=== PATIENT | male | born 1975 | race Caucasian/White ===

== ENCOUNTER 2020-12-18 04:10 | Emergency (ER) | payer OTHER, SELFPAY ==
[2020-12-18] VITALS (16 sets, daily range): BP systolic 115–150; BP diastolic 65–83; PULSE 83–106; RESP 14–19; TEMP 36.4–36.8; O2SAT 91–97; BMI 29.7
--- NOTE | 2020-12-18 04:31 | DI.RAD.S_ITS ---
PROCEDURE: XR CHEST 1V INDICATIONS: Short of breath TECHNIQUE: One view of the chest was acquired. COMPARISON: None. FINDINGS: Surgical changes and devices: None. Lungs and pleura: Patchy opacities noted in the lungs bilaterally. No pleural effusions or pneumothorax. Mediastinum: Mediastinal contours appear normal. Heart size is normal. Bones and chest wall: No suspicious bony lesions. Overlying soft tissues appear unremarkable. IMPRESSION: N patchy bibasilar airspace opacities which could represent atelectasis versus pneumonia. Dictated by: Leydi Stack MD, PhD on 12/18/2020 at 9:28 Approved by: Leydi Stack MD, PhD on 12/18/2020 at 9:29
--- NOTE | 2020-12-18 04:32 | ED.AMS ---
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 Patient has history of alcohol induced hepatic failure. Followed by [facility] for this condition. Within the last month had esophageal banding. Tonight he admits drinking alcohol as well as taking someone else's Dilaudid 2 mg by mouth. Partner states he has been making nonsensical statements in the past couple days. Patient is somnolent but awakes. Has pinpoint pupils. Protecting his airway. Patient is jaundice and icterus. Answering questions appropriately. Has had occasional chest pain and dyspnea recently. No blood in mouth on exam partner states he has been taking his lactulose as well as PPI medication MD complaint: altered mental status Related Data Allergies Allergy/AdvReac Type Severity Reaction Status Date / Time No Known Drug Allergies Allergy Verified 12/18/20 05:31 Review of Systems <Tony Burgos MD - Last Filed: 01/04/21 07:07> Review of Systems Narrative: GENERAL: Denies chills, fatigue, malaise, fever, sweats. HEENT: Denies sinus pain, ear pain, sore throat RESPIRATORY: Complains dyspnea, cough CARDIOVASCULAR: Denies chest pain, palpitations GASTROINTESTINAL: Denies nausea, vomiting, abdominal pain : Denies dysuria, frequency, hematuria MUSCULOSKELETAL: denies muscle or bony pain SKIN: Denies rash, skin lesions NEUROLOGIC: Denies weakness, numbness ROS Unobtainable: All systems reviewed & are unremarkable except as noted in HPI and below Patient History <Tony Burgos MD - Last Filed: 01/04/21 07:07> Social History Smoking Status: Current every day smoker Smoking Status: Current every day smoker alcohol intake frequency: 3 or more drinks per day Alcohol type: hard liquor Substance Use Type: does not use Exam <Tony Burgos MD - Last Filed: 01/04/21 07:07> Narrative Exam Narrative: GENERAL: in no distress, not toxic not dyspneic, somnolent but awakes easily. HEAD: Normocephalic. EYES: Pupils equal round bilateral scleral icterus. No injection no discharge, small but symmetric pupils, reactive to light. ENT: Mucous membranes moist. NECK: Trachea midline. CARDIOVASCULAR: Regular rate and rhythm without murmurs RESPIRATORY: Clear to auscultation. Breath sounds equal bilaterally. No wheezes, rales, or rhonchi. Speaks full sentences GASTROINTESTINAL: Abdomen soft, non-tender EXTREMITIES: No gross deformities. BACK: No flank tenderness. NEURO: AOx4. SKIN: Warm and dry, patient is jaundiced PSYCH: Not anxious, is cooperative Initial Vital Signs Initial Vital Signs: Vital Signs Temperature 97.7 F 12/18/20 04:26 Pulse Rate 96 H 12/18/20 04:26 Respiratory Rate 14 12/18/20 04:26 Blood Pressure 133/71 12/18/20 04:26 Pulse Oximetry 96 12/18/20 04:26 <Destinee Peres DO - Last Filed: 12/18/20 11:25> Initial Vital Signs Initial Vital Signs: Vital Signs Temperature 97.7 F 12/18/20 04:26 Pulse Rate 96 H 12/18/20 04:26 Respiratory Rate 14 12/18/20 04:26 Blood Pressure 133/71 12/18/20 04:26 Pulse Oximetry 96 12/18/20 04:26 Course <Tony Burgos MD - Last Filed: 01/04/21 07:07> Course Course Narrative: No new issues during course of stay. There are no beds available at the [facility] Time 7:00 a.m.. s/o dr peres, awaiting to hear back from and Aron [place] Orders Ordered: Discontinued Medications Ceftriaxone Sodium/Dextrose (Rocephin) 1 gm in 50 mls @ 100 mls/hr IV NOW ONE Stop: 12/18/20 05:54 Last Infusion: 12/18/20 06:41 Dose: 0 mls/hr Documented by: Admin: 12/18/20 05:57 Dose: 100 mls/hr Documented by: CATHY Azithromycin 500 mg/ Dextrose 250 mls @ 250 mls/hr IV NOW ONE Stop: 12/18/20 05:26 Last Infusion: 12/18/20 08:37 Dose: 0 mls/hr Documented by: Admin: 12/18/20 06:40 Dose: 250 mls/hr Documented by: CATHY Sodium Chloride (Normal Saline 0.9%) 1,000 mls @ 1,000 mls/hr IV BOLUS ONE Stop: 12/18/20 07:12 Last Infusion: 12/18/20 09:06 Dose: 0 mls/hr Documented by: Admin: 12/18/20 06:56 Dose: 1,000 mls/hr Documented by: MICHELL Reevaluation(s) Reevaluation #1: Informed 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 However will be challenging to find a bed for all of his needs, beds are full in [place] Time: 05:30 Consultations Consultation #1: Spoke with [facility] morning babysitter dr bowers, agrees patient does need higher level care however they do not have any beds. Time: 06:32 Vital Signs Vital signs: Vital Signs - 8 hr 12/18/20 04:26 12/18/20 06:01 12/18/20 06:30 Temperature 97.7 F Pulse Rate 96 H 88 100 H Respiratory Rate 14 18 Blood Pressure 133/71 150/83 H Pulse Oximetry 96 96 97 12/18/20 07:00 12/18/20 07:30 12/18/20 07:36 Temperature 97.7 F Pulse Rate 92 H 89 106 H Respiratory Rate 18 Blood Pressure 132/76 Pulse Oximetry 97 94 12/18/20 07:37 12/18/20 07:55 12/18/20 07:57 Temperature 97.6 F Pulse Rate 101 H 101 H 91 H Respiratory Rate 19 Blood Pressure 132/76 115/68 115/68 Pulse Oximetry 97 12/18/20 08:00 12/18/20 08:23 12/18/20 08:30 Temperature Pulse Rate 83 Respiratory Rate Blood Pressure 119/65 124/65 Pulse Oximetry 95 91 12/18/20 08:31 12/18/20 09:00 12/18/20 10:11 Temperature 98.3 F Pulse Rate 102 H 91 H 91 H Respiratory Rate 15 Blood Pressure 124/69 133/71 Pulse Oximetry 94 93 12/18/20 10:26 Temperature 97.9 F Pulse Rate 86 Respiratory Rate 14 Blood Pressure 132/75 Pulse Oximetry <Destinee Peres DO - Last Filed: 12/18/20 11:25> Orders Ordered: Discontinued Medications Ceftriaxone Sodium/Dextrose (Rocephin) 1 gm in 50 mls @ 100 mls/hr IV NOW ONE Stop: 12/18/20 05:54 Last Infusion: 12/18/20 06:41 Dose: 0 mls/hr Documented by: Admin: 12/18/20 05:57 Dose: 100 mls/hr Documented by: CATHY Azithromycin 500 mg/ Dextrose 250 mls @ 250 mls/hr IV NOW ONE Stop: 12/18/20 05:26 Last Infusion: 12/18/20 08:37 Dose: 0 mls/hr Documented by: Admin: 12/18/20 06:40 Dose: 250 mls/hr Documented by: CATHY Sodium Chloride (Normal Saline 0.9%) 1,000 mls @ 1,000 mls/hr IV BOLUS ONE Stop: 12/18/20 07:12 Last Infusion: 12/18/20 09:06 Dose: 0 mls/hr Documented by: Admin: 12/18/20 06:56 Dose: 1,000 mls/hr Documented by: MICHELL Vital Signs Vital signs: Vital Signs - 8 hr 12/18/20 04:26 12/18/20 06:01 12/18/20 06:30 Temperature 97.7 F Pulse Rate 96 H 88 100 H Respiratory Rate 14 18 Blood Pressure 133/71 150/83 H Pulse Oximetry 96 96 97 12/18/20 07:00 12/18/20 07:30 12/18/20 07:36 Temperature 97.7 F Pulse Rate 92 H 89 106 H Respiratory Rate 18 Blood Pressure 132/76 Pulse Oximetry 97 94 12/18/20 07:37 12/18/20 07:55 12/18/20 07:57 Temperature 97.6 F Pulse Rate 101 H 101 H 91 H Respiratory Rate 19 Blood Pressure 132/76 115/68 115/68 Pulse Oximetry 97 12/18/20 08:00 12/18/20 08:23 12/18/20 08:30 Temperature Pulse Rate 83 Respiratory Rate Blood Pressure 119/65 124/65 Pulse Oximetry 95 91 12/18/20 08:31 12/18/20 09:00 12/18/20 10:11 Temperature 98.3 F Pulse Rate 102 H 91 H 91 H Respiratory Rate 15 Blood Pressure 124/69 133/71 Pulse Oximetry 94 93 12/18/20 10:26 Temperature 97.9 F Pulse Rate 86 Respiratory Rate 14 Blood Pressure 132/75 Pulse Oximetry MDM - Altered Mental Status <Tony Burgos MD - Last Filed: 01/04/21 07:07> Differential Diagnosis Differential diagnosis: Likely alcoholic intoxication, altered mental status and sepsis (Anemia/hepatic encephalopathy/community-acquired pneumonia) Lab Data Attestation: I reviewed the patient's lab results. Result diagrams: 12/18/20 04:25 12/18/20 04:25 Labs: Lab Results 12/18/20 12/18/20 12/18/20 Range/Units 04:25 04:25 04:25 WBC 7.4 (4.5-11.0) X10^3/uL RBC 2.43 L (4.5-5.9) X10^6/uL Hgb 6.8 L* (13.5-17.5) g/dL Hct 22.2 L (41-53) % MCV 91.4 (80-100) fL MCH 28.1 (26-34) PG MCHC 30.7 (30-36) % RDW 19.6 H (11.6-14.8) % Plt Count 79 L (150-400) X10^3/uL Neut % (Auto) 55.2 (50-75) % Lymph % (Auto) 26.4 (25-40) % [place] % (Auto) 10.8 (3-14) % Eos % (Auto) 5.9 H (2-4) % Baso % (Auto) 1.7 (0-2) % Neut # (Auto) 4100 (1109-1210) /uL Lymph # (Auto) 2000 (8708-7342) /uL [place] # (Auto) 800 (0-900) /uL Eos # (Auto) 400 (0-450) /uL Baso # (Auto) 100 (0-100) /uL Platelet Estimate Decreased on smear RBC Morphology See below Polychromasia 1+ H Anisocytosis 2+ H PT 23.6 H (10.1-12.7) SECONDS INR 2.1 H (0.9-1.3) APTT 43 H (26.4-36.2) SECONDS Sodium (137-145) mmol/L Potassium (3.4-5.1) mmol/L Chloride (98-107) mmol/L Carbon Dioxide (22-32) mmol/L BUN (9-20) mg/dL Creatinine (0.66-1.25) mg/dL Estimated GFR (>60) mL/min BUN/Creatinine Ratio (6-22) Glucose (70-100) mg/dL Lactate (0.7-2.1) mmol/L Calcium (8.4-10.2) mg/dL Total Bilirubin (0.2-1.3) mg/dL AST (17-59) IU/L ALT (<50) IU/L Alkaline Phosphatase (38-126) U/L Ammonia 96 H (9-30) umol/L Total Creatine Kinase (55-170) U/L CK-MB (CK-2) (<2.37) ng/mL CK-MB (CK-2) Rel Index (1.5-5.0) % Troponin I (0.01-0.034) ng/mL Total Protein (6.3-8.2) g/dL Albumin (3.5-5.0) g/dL Globulin (1.7-4.1) g/dL Albumin/Globulin Ratio (1.0-2.8) Lipase (23-300) U/L Procalcitonin (<0.5) ng/mL Ethyl Alcohol ( - 10) mg/dL SARS-CoV-2 (PCR) (Negative) Blood Type Antibody Screen Crossmatch 12/18/20 12/18/20 12/18/20 Range/Units 04:25 04:25 04:25 WBC (4.5-11.0) X10^3/uL RBC (4.5-5.9) X10^6/uL Hgb (13.5-17.5) g/dL Hct (41-53) % MCV (80-100) fL MCH (26-34) PG MCHC (30-36) % RDW (11.6-14.8) % Plt Count (150-400) X10^3/uL Neut % (Auto) (50-75) % Lymph % (Auto) (25-40) % [place] % (Auto) (3-14) % Eos % (Auto) (2-4) % Baso % (Auto) (0-2) % Neut # (Auto) (8555-2833) /uL Lymph # (Auto) (5087-6594) /uL [place] # (Auto) (0-900) /uL Eos # (Auto) (0-450) /uL Baso # (Auto) (0-100) /uL Platelet Estimate RBC Morphology Polychromasia Anisocytosis PT (10.1-12.7) SECONDS INR (0.9-1.3) APTT (26.4-36.2) SECONDS Sodium 143 (137-145) mmol/L Potassium 4.7 (3.4-5.1) mmol/L Chloride 110 H (98-107) mmol/L Carbon Dioxide 17 L (22-32) mmol/L BUN 9 (9-20) mg/dL Creatinine 0.94 (0.66-1.25) mg/dL Estimated GFR > 60.0 (>60) mL/min BUN/Creatinine Ratio 9.6 (6-22) Glucose 105 H (70-100) mg/dL Lactate (0.7-2.1) mmol/L Calcium 6.5 L (8.4-10.2) mg/dL Total Bilirubin 10.0 H (0.2-1.3) mg/dL AST 80 H (17-59) IU/L ALT 21 (<50) IU/L Alkaline Phosphatase 164 H (38-126) U/L Ammonia (9-30) umol/L Total Creatine Kinase 286 H (55-170) U/L CK-MB (CK-2) 4.88 H (<2.37) ng/mL CK-MB (CK-2) Rel Index 1.7 (1.5-5.0) % Troponin I 0.067 H (0.01-0.034) ng/mL Total Protein 7.6 (6.3-8.2) g/dL Albumin 3.1 L (3.5-5.0) g/dL Globulin 4.5 H (1.7-4.1) g/dL Albumin/Globulin Ratio 0.7 L (1.0-2.8) Lipase 276 (23-300) U/L Procalcitonin < 0.05 (<0.5) ng/mL Ethyl Alcohol 223 H ( - 10) mg/dL SARS-CoV-2 (PCR) (Negative) Blood Type Antibody Screen Crossmatch 12/18/20 12/18/20 12/18/20 Range/Units 04:25 04:45 06:10 WBC (4.5-11.0) X10^3/uL RBC (4.5-5.9) X10^6/uL Hgb (13.5-17.5) g/dL Hct (41-53) % MCV (80-100) fL MCH (26-34) PG MCHC (30-36) % RDW (11.6-14.8) % Plt Count (150-400) X10^3/uL Neut % (Auto) (50-75) % Lymph % (Auto) (25-40) % [place] % (Auto) (3-14) % Eos % (Auto) (2-4) % Baso % (Auto) (0-2) % Neut # (Auto) (4076-5152) /uL Lymph # (Auto) (7841-1919) /uL [place] # (Auto) (0-900) /uL Eos # (Auto) (0-450) /uL Baso # (Auto) (0-100) /uL Platelet Estimate RBC Morphology Polychromasia Anisocytosis PT (10.1-12.7) SECONDS INR (0.9-1.3) APTT (26.4-36.2) SECONDS Sodium (137-145) mmol/L Potassium (3.4-5.1) mmol/L Chloride (98-107) mmol/L Carbon Dioxide (22-32) mmol/L BUN (9-20) mg/dL Creatinine (0.66-1.25) mg/dL Estimated GFR (>60) mL/min BUN/Creatinine Ratio (6-22) Glucose (70-100) mg/dL Lactate 10.2 H* (0.7-2.1) mmol/L Calcium (8.4-10.2) mg/dL Total Bilirubin (0.2-1.3) mg/dL AST (17-59) IU/L ALT (<50) IU/L Alkaline Phosphatase (38-126) U/L Ammonia (9-30) umol/L Total Creatine Kinase (55-170) U/L CK-MB (CK-2) (<2.37) ng/mL CK-MB (CK-2) Rel Index (1.5-5.0) % Troponin I (0.01-0.034) ng/mL Total Protein (6.3-8.2) g/dL Albumin (3.5-5.0) g/dL Globulin (1.7-4.1) g/dL Albumin/Globulin Ratio (1.0-2.8) Lipase (23-300) U/L Procalcitonin (<0.5) ng/mL Ethyl Alcohol ( - 10) mg/dL SARS-CoV-2 (PCR) Negative (Negative) Blood Type A Positive Antibody Screen Negative Crossmatch See Detail 12/18/20 Range/Units 08:03 WBC (4.5-11.0) X10^3/uL RBC (4.5-5.9) X10^6/uL Hgb (13.5-17.5) g/dL Hct (41-53) % MCV (80-100) fL MCH (26-34) PG MCHC (30-36) % RDW (11.6-14.8) % Plt Count (150-400) X10^3/uL Neut % (Auto) (50-75) % Lymph % (Auto) (25-40) % [place] % (Auto) (3-14) % Eos % (Auto) (2-4) % Baso % (Auto) (0-2) % Neut # (Auto) (5680-4668) /uL Lymph # (Auto) (0566-2016) /uL [place] # (Auto) (0-900) /uL Eos # (Auto) (0-450) /uL Baso # (Auto) (0-100) /uL Platelet Estimate RBC Morphology Polychromasia Anisocytosis PT (10.1-12.7) SECONDS INR (0.9-1.3) APTT (26.4-36.2) SECONDS Sodium (137-145) mmol/L Potassium (3.4-5.1) mmol/L Chloride (98-107) mmol/L Carbon Dioxide (22-32) mmol/L BUN (9-20) mg/dL Creatinine (0.66-1.25) mg/dL Estimated GFR (>60) mL/min BUN/Creatinine Ratio (6-22) Glucose (70-100) mg/dL Lactate 6.5 H* (0.7-2.1) mmol/L Calcium (8.4-10.2) mg/dL Total Bilirubin (0.2-1.3) mg/dL AST (17-59) IU/L ALT (<50) IU/L Alkaline Phosphatase (38-126) U/L Ammonia (9-30) umol/L Total Creatine Kinase (55-170) U/L CK-MB (CK-2) (<2.37) ng/mL CK-MB (CK-2) Rel Index (1.5-5.0) % Troponin I (0.01-0.034) ng/mL Total Protein (6.3-8.2) g/dL Albumin (3.5-5.0) g/dL Globulin (1.7-4.1) g/dL Albumin/Globulin Ratio (1.0-2.8) Lipase (23-300) U/L Procalcitonin (<0.5) ng/mL Ethyl Alcohol ( - 10) mg/dL SARS-CoV-2 (PCR) (Negative) Blood Type Antibody Screen Crossmatch Imaging Data Chest x-ray: Radiologist's Impression: Bilateral lower lobe pulmonary infiltrates ECG Data Attestation: I personally reviewed and interpreted this ECG as follows: Interpretation: Normal sinus rhythm, ventricular rate 95, no ST elevation <Destinee Peres, DO - Last Filed: 12/18/20 11:25> Lab Data Attestation: I reviewed the patient's lab results. Labs: Lab Results 12/18/20 12/18/20 12/18/20 Range/Units 04:25 04:25 04:25 WBC 7.4 (4.5-11.0) X10^3/uL RBC 2.43 L (4.5-5.9) X10^6/uL Hgb 6.8 L* (13.5-17.5) g/dL Hct 22.2 L (41-53) % MCV 91.4 (80-100) fL MCH 28.1 (26-34) PG MCHC 30.7 (30-36) % RDW 19.6 H (11.6-14.8) % Plt Count 79 L (150-400) X10^3/uL Neut % (Auto) 55.2 (50-75) % Lymph % (Auto) 26.4 (25-40) % [place] % (Auto) 10.8 (3-14) % Eos % (Auto) 5.9 H (2-4) % Baso % (Auto) 1.7 (0-2) % Neut # (Auto) 4100 (4617-2714) /uL Lymph # (Auto) 2000 (9824-6100) /uL [place] # (Auto) 800 (0-900) /uL Eos # (Auto) 400 (0-450) /uL Baso # (Auto) 100 (0-100) /uL Platelet Estimate Decreased on smear RBC Morphology See below Polychromasia 1+ H Anisocytosis 2+ H PT 23.6 H (10.1-12.7) SECONDS INR 2.1 H (0.9-1.3) APTT 43 H (26.4-36.2) SECONDS Sodium (137-145) mmol/L Potassium (3.4-5.1) mmol/L Chloride (98-107) mmol/L Carbon Dioxide (22-32) mmol/L BUN (9-20) mg/dL Creatinine (0.66-1.25) mg/dL Estimated GFR (>60) mL/min BUN/Creatinine Ratio (6-22) Glucose (70-100) mg/dL Lactate (0.7-2.1) mmol/L Calcium (8.4-10.2) mg/dL Total Bilirubin (0.2-1.3) mg/dL AST (17-59) IU/L ALT (<50) IU/L Alkaline Phosphatase (38-126) U/L Ammonia 96 H (9-30) umol/L Total Creatine Kinase (55-170) U/L CK-MB (CK-2) (<2.37) ng/mL CK-MB (CK-2) Rel Index (1.5-5.0) % Troponin I (0.01-0.034) ng/mL Total Protein (6.3-8.2) g/dL Albumin (3.5-5.0) g/dL Globulin (1.7-4.1) g/dL Albumin/Globulin Ratio (1.0-2.8) Lipase (23-300) U/L Procalcitonin (<0.5) ng/mL Ethyl Alcohol ( - 10) mg/dL SARS-CoV-2 (PCR) (Negative) Blood Type Antibody Screen Crossmatch 12/18/20 12/18/20 12/18/20 Range/Units 04:25 04:25 04:25 WBC (4.5-11.0) X10^3/uL RBC (4.5-5.9) X10^6/uL Hgb (13.5-17.5) g/dL Hct (41-53) % MCV (80-100) fL MCH (26-34) PG MCHC (30-36) % RDW (11.6-14.8) % Plt Count (150-400) X10^3/uL Neut % (Auto) (50-75) % Lymph % (Auto) (25-40) % [place] % (Auto) (3-14) % Eos % (Auto) (2-4) % Baso % (Auto) (0-2) % Neut # (Auto) (1748-9353) /uL Lymph # (Auto) (5150-1849) /uL [place] # (Auto) (0-900) /uL Eos # (Auto) (0-450) /uL Baso # (Auto) (0-100) /uL Platelet Estimate RBC Morphology Polychromasia Anisocytosis PT (10.1-12.7) SECONDS INR (0.9-1.3) APTT (26.4-36.2) SECONDS Sodium 143 (137-145) mmol/L Potassium 4.7 (3.4-5.1) mmol/L Chloride 110 H (98-107) mmol/L Carbon Dioxide 17 L (22-32) mmol/L BUN 9 (9-20) mg/dL Creatinine 0.94 (0.66-1.25) mg/dL Estimated GFR > 60.0 (>60) mL/min BUN/Creatinine Ratio 9.6 (6-22) Glucose 105 H (70-100) mg/dL Lactate (0.7-2.1) mmol/L Calcium 6.5 L (8.4-10.2) mg/dL Total Bilirubin 10.0 H (0.2-1.3) mg/dL AST 80 H (17-59) IU/L ALT 21 (<50) IU/L Alkaline Phosphatase 164 H (38-126) U/L Ammonia (9-30) umol/L Total Creatine Kinase 286 H (55-170) U/L CK-MB (CK-2) 4.88 H (<2.37) ng/mL CK-MB (CK-2) Rel Index 1.7 (1.5-5.0) % Troponin I 0.067 H (0.01-0.034) ng/mL Total Protein 7.6 (6.3-8.2) g/dL Albumin 3.1 L (3.5-5.0) g/dL Globulin 4.5 H (1.7-4.1) g/dL Albumin/Globulin Ratio 0.7 L (1.0-2.8) Lipase 276 (23-300) U/L Procalcitonin < 0.05 (<0.5) ng/mL Ethyl Alcohol 223 H ( - 10) mg/dL SARS-CoV-2 (PCR) (Negative) Blood Type Antibody Screen Crossmatch 12/18/20 12/18/20 12/18/20 Range/Units 04:25 04:45 06:10 WBC (4.5-11.0) X10^3/uL RBC (4.5-5.9) X10^6/uL Hgb (13.5-17.5) g/dL Hct (41-53) % MCV (80-100) fL MCH (26-34) PG MCHC (30-36) % RDW (11.6-14.8) % Plt Count (150-400) X10^3/uL Neut % (Auto) (50-75) % Lymph % (Auto) (25-40) % [place] % (Auto) (3-14) % Eos % (Auto) (2-4) % Baso % (Auto) (0-2) % Neut # (Auto) (8138-1785) /uL Lymph # (Auto) (7938-6762) /uL [place] # (Auto) (0-900) /uL Eos # (Auto) (0-450) /uL Baso # (Auto) (0-100) /uL Platelet Estimate RBC Morphology Polychromasia Anisocytosis PT (10.1-12.7) SECONDS INR (0.9-1.3) APTT (26.4-36.2) SECONDS Sodium (137-145) mmol/L Potassium (3.4-5.1) mmol/L Chloride (98-107) mmol/L Carbon Dioxide (22-32) mmol/L BUN (9-20) mg/dL Creatinine (0.66-1.25) mg/dL Estimated GFR (>60) mL/min BUN/Creatinine Ratio (6-22) Glucose (70-100) mg/dL Lactate 10.2 H* (0.7-2.1) mmol/L Calcium (8.4-10.2) mg/dL Total Bilirubin (0.2-1.3) mg/dL AST (17-59) IU/L ALT (<50) IU/L Alkaline Phosphatase (38-126) U/L Ammonia (9-30) umol/L Total Creatine Kinase (55-170) U/L CK-MB (CK-2) (<2.37) ng/mL CK-MB (CK-2) Rel Index (1.5-5.0) % Troponin I (0.01-0.034) ng/mL Total Protein (6.3-8.2) g/dL Albumin (3.5-5.0) g/dL Globulin (1.7-4.1) g/dL Albumin/Globulin Ratio (1.0-2.8) Lipase (23-300) U/L Procalcitonin (<0.5) ng/mL Ethyl Alcohol ( - 10) mg/dL SARS-CoV-2 (PCR) Negative (Negative) Blood Type A Positive Antibody Screen Negative Crossmatch See Detail 12/18/20 Range/Units 08:03 WBC (4.5-11.0) X10^3/uL RBC (4.5-5.9) X10^6/uL Hgb (13.5-17.5) g/dL Hct (41-53) % MCV (80-100) fL MCH (26-34) PG MCHC (30-36) % RDW (11.6-14.8) % Plt Count (150-400) X10^3/uL Neut % (Auto) (50-75) % Lymph % (Auto) (25-40) % [place] % (Auto) (3-14) % Eos % (Auto) (2-4) % Baso % (Auto) (0-2) % Neut # (Auto) (1053-6853) /uL Lymph # (Auto) (6824-2130) /uL [place] # (Auto) (0-900) /uL Eos # (Auto) (0-450) /uL Baso # (Auto) (0-100) /uL Platelet Estimate RBC Morphology Polychromasia Anisocytosis PT (10.1-12.7) SECONDS INR (0.9-1.3) APTT (26.4-36.2) SECONDS Sodium (137-145) mmol/L Potassium (3.4-5.1) mmol/L Chloride (98-107) mmol/L Carbon Dioxide (22-32) mmol/L BUN (9-20) mg/dL Creatinine (0.66-1.25) mg/dL Estimated GFR (>60) mL/min BUN/Creatinine Ratio (6-22) Glucose (70-100) mg/dL Lactate 6.5 H* (0.7-2.1) mmol/L Calcium (8.4-10.2) mg/dL Total Bilirubin (0.2-1.3) mg/dL AST (17-59) IU/L ALT (<50) IU/L Alkaline Phosphatase (38-126) U/L Ammonia (9-30) umol/L Total Creatine Kinase (55-170) U/L CK-MB (CK-2) (<2.37) ng/mL CK-MB (CK-2) Rel Index (1.5-5.0) % Troponin I (0.01-0.034) ng/mL Total Protein (6.3-8.2) g/dL Albumin (3.5-5.0) g/dL Globulin (1.7-4.1) g/dL Albumin/Globulin Ratio (1.0-2.8) Lipase (23-300) U/L Procalcitonin (<0.5) ng/mL Ethyl Alcohol ( - 10) mg/dL SARS-CoV-2 (PCR) (Negative) Blood Type Antibody Screen Crossmatch MDM Narrative Medical decision making narrative: I received sign-out from Dr. Burgos seen and evaluated patient myself. Patient sleeping. Easily arousable alert and appropriate overall appears better than his numbers. He states that for the last week he has had increasing shortness of breath with exertion. He denies any dizziness or lightheadedness. He takes lactulose and has large bowel movements he is unsure that it is dark or bloody. He has not had any nausea or vomiting. He is found to be quite anemic with significantly elevated lactic acid along with indeterminate troponin. He is overall hemodynamically stable anemia is likely contributing to shortness of breath and in troponin release as well. He is given 2 units of packed red blood cells for anemia. Liver enzymes and bilirubin also elevated unclear what his baseline is. He has been treated with Rocephin and azithromycin for pneumonia, chest x-ray does show bilateral lower lobe infiltrates. He denies any productive cough or fever. Lactic acid is improving but still significantly elevated. Patient appears well and not septic, lactic acid may be due to liver failure and not clearing it. 8:20am Dr. Griggs, morning babysitter have Maria De Jesus tejada updated patient's symptoms test results agrees with transfer 8:30am Dr. Celaya hospitalist updated patient's symptoms test results repeat lactate and accepts for transfer <Destinee Peres, DO - Last Filed: 12/18/20 11:25> Critical Care Time Critical Care Time: Yes Total Critical Care Time: 30 Attestation: The high probability of a clinically significant, sudden or life threatening deterioration of the [cardiovascular] system(s) required my full and direct attention, intervention and personal management. The aggregate critical care time was 30 minutes. This time is in addition to time spent performing reported procedures but includes the following: [x] Data Review and interpretation [x] Patient assessment and monitoring of vital signs [x] Documentation [x] Medication orders and management Discharge Plan Departure Patient Disposition: [facility] Clinical Impression: Acute hepatic encephalopathy, Anemia, Alcohol intoxication
[2020-12-18 04:46] LABS: Ammonia (NH3) 96 umol/L (9-30)
[2020-12-18 04:47] LABS: Ethanol (ETOH) 223 mg/dL
[2020-12-18 04:49] LABS: Alanine Aminotransferase 21 IU/L (<50); Albumin 3.1 g/dL (3.5-5.0); Albumin Globulin Ratio 0.7 (1.0-2.8); Alkaline Phosphatase 164 U/L (38-126); Aspartate Aminotransferase 80 IU/L (17-59); BUN Creatinine Ratio 9.6 (6-22); Blood Urea Nitrogen 9 mg/dL (9-20); Calcium 6.5 mg/dL (8.4-10.2); Carbon Dioxide 17 mmol/L (22-32); Chloride 110 mmol/L (98-107); Creatine Kinase 286 U/L (55-170); Estimated Glomerular Filt Rate > 60.0 mL/min (>60); Globulin 4.5 g/dL (1.7-4.1); Glucose 105 mg/dL (70-100); HEMOLYSIS < 15 (0-50); Lipase 276 U/L (23-300); Potassium 4.7 mmol/L (3.4-5.1); Sodium 143 mmol/L (137-145); Total Protein 7.6 g/dL (6.3-8.2)
[2020-12-18 04:52] LABS: Basophils Absolute Auto 100 /uL (0-100); Basophils Percent Auto 1.7 % (0-2); Eosinophils Absolute Auto 400 /uL (0-450); Eosinophils Percent Auto 5.9 % (2-4); Hematocrit 22.2 % (41-53); Lymphocytes Absolute Auto 2000 /uL (1100-4500); Lymphocytes Percent Auto 26.4 % (25-40); Mean Corpuscular HGB Conc 30.7 % (30-36); Mean Corpuscular Hemoglobin 28.1 PG (26-34); Mean Corpuscular Volume 91.4 fL (80-100); Monocytes Absolute Auto 800 /uL (0-900); Monocytes Percent Auto 10.8 % (3-14); Neutrophils Absolute Auto 4100 /uL (1500-7000); Neutrophils Percent Auto 55.2 % (50-75); Red Blood Cell Count 2.43 X10^6/uL (4.5-5.9); Red Cell Distribution Width 19.6 % (11.6-14.8); White Blood Cell Count 7.4 X10^3/uL (4.5-11.0)
[2020-12-18 04:59] LABS: Hemoglobin 6.8 g/dL (13.5-17.5)
[2020-12-18 05:00] LABS: Add Manual Diff / Slide Review SLIDE REVIEW; Troponin I 0.067 ng/mL (0.01-0.034)
[2020-12-18 05:04] LABS: CKMB % Relative Index 1.7 % (1.5-5.0); Creatine Kinase MB 4.88 ng/mL (<2.37); INR 2.1 (0.9-1.3); Prothrombin Time 23.6 SECONDS (10.1-12.7)
[2020-12-18 05:07] LABS: PTT Partial Thromboplastin Tim 43 SECONDS (26.4-36.2)
[2020-12-18 05:11] LABS: COVID19 -Nasal RAPID Negative (Negative)
[2020-12-18] MEDS: CEFTRIAXONE 1 GM/50 ML FROZ.PIGGY IV (05:57)
[2020-12-18 06:08] LABS: Lactate (Lactic Acid) 10.2 mmol/L (0.7-2.1)
[2020-12-18 06:21] LABS: Procalcitonin < 0.05 ng/mL (<0.5)
[2020-12-18 06:33] LABS: Platelet Count 79 X10^3/uL (150-400)
[2020-12-18 06:39] LABS: Anisocytosis 2+; Platelet Estimate Decreased on smear; Polychromasia 1+
[2020-12-18] MEDS: AZITHROMYCIN 500 MG in DEXTROSE 5% IN WATER 250 ML IV (06:40)
[2020-12-18] MEDS: SODIUM CHLORIDE 0.9% 1,000 ML 1000 ML IV (06:56)
[2020-12-18 07:56] LABS: Reflexed Lactate in 2 Hours Y
[2020-12-18 08:28] LABS: Lactate 2HR (Lactic Acid Rflx) 6.5 mmol/L (0.7-2.1)
--- NOTE | 2020-12-18 10:30 | PC.NURSE ---
blood infusing with transport team
== END 2020-12-18 10:32 | disposition short-term general hospital (02) ==
PROVIDERS: Emergency Medicine; Emergency Provider Emergency Medicine
DX: K72.00 Acute and subacute hepatic failure without coma (principal); D64.9 Anemia, unspecified; F10.129 Alcohol abuse with intoxication, unspecified; Y90.7 Blood alcohol level of 200-239 mg/100 ml; R06.00 Dyspnea, unspecified; R07.9 Chest pain, unspecified; Z20.822 Contact with and (suspected) exposure to COVID-19
CPT/HCPCS: 36415; 36430; 71045; 80053; 80320; 82140; 82550; 82553; 83605; 83690; 84145; 84484; 85025; 85610; 85730; 86850; 86900; 86901; 87040; 87635; 93005; 96365; 96366; 96367; 99282; 99291; C9803; P9016

== ENCOUNTER 2021-07-06 22:08 | Emergency (ER) | payer MEDICARE, MEDICAID, SELFPAY ==
[2021-07-06 22:14] VITALS: BP 146/66; PULSE 117; RESP 24; TEMP 37.9; O2SAT 98; BMI 36.6
[2021-07-06 22:34] VITALS: BP 130/70; PULSE 108; RESP 25; O2SAT 99
--- NOTE | 2021-07-06 22:34 | DI.RAD.S_ITS ---
PROCEDURE: XR CHEST 1V INDICATIONS: suspected sepsis TECHNIQUE: One view of the chest was acquired. COMPARISON: [facility], CR, XR CHEST 1V, 12/18/2020, 4:36. FINDINGS: Surgical changes and devices: None. Lungs and pleura: Lungs are clear. No pleural effusions or pneumothorax. Mediastinum: Mediastinal contours appear normal. Heart size is normal. Bones and chest wall: No suspicious bony lesions. Overlying soft tissues appear unremarkable. IMPRESSION: No acute cardiopulmonary disease process. Dictated by: Leydi Stack MD, PhD on 07/07/2021 at 8:33 Approved by: Leydi Stack MD, PhD on 07/07/2021 at 8:33
--- NOTE | 2021-07-06 22:47 | DI.CT.S_ITS ---
PROCEDURE: CT ABDOMEN PELVIS W CON INDICATIONS: left sided abdominal pain TECHNIQUE: After the administration of intravenous contrast, axial sections acquired from the lung bases to the pubic symphysis. Coronal and sagittal reformats were performed. For radiation dose reduction, the following was used: automated exposure control, adjustment of mA and/or kV according to patient size. COMPARISON: None. FINDINGS: Image quality: Excellent. Lung bases: Unremarkable. Heart: No significant findings. ABDOMEN: Liver: Hepatic contour is nodular, indicating cirrhosis. Gallbladder: Unremarkable. Biliary ducts: Unremarkable. Pancreas: Unremarkable. Spleen: Unremarkable. Adrenal Glands: Unremarkable. Kidneys and Ureters: Unremarkable. Stomach and Bowel: There is moderate thickening of the distal esophagus. 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 Stomach, small bowel loops, and colon are unremarkable. Peritoneum: No abnormal intraperitoneal fluid. Large amount of ascites. Ventral Wall: There is a fat and fluid containing anterior abdominal wall hernia measuring 70 mm transverse. Abdominal Nodes: No retroperitoneal or mesenteric adenopathy by size criteria. Vessels: Aorta and inferior vena cava are normal in size. PELVIS: Pelvic Organs: Unremarkable. Bladder: Unremarkable. Pelvic Nodes: No enlarged lymph nodes. Miscellaneous: No hernias are seen. Bones: Unremarkable. IMPRESSION: 1. Cirrhosis and portal hypertension. 2. Ascites. 3. Periesophageal varices. 4. Distal esophageal thickening. This could be further assessed with endoscopy, if clinically indicated. 5. Concordant with preliminary interpretation. Dictated by: Haley Durham M.D. on 07/07/2021 at 8:18 Approved by: Haley Durham M.D. on 07/07/2021 at 8:20
[2021-07-06 22:49] LABS: Basophils Absolute Auto 100 /uL (0-100); Basophils Percent Auto 1.3 % (0-2); Eosinophils Absolute Auto 100 /uL (0-450); Eosinophils Percent Auto 0.7 % (2-4); Hemoglobin 7.9 g/dL (13.5-17.5); Lymphocytes Absolute Auto 1500 /uL (1100-4500); Lymphocytes Percent Auto 14.9 % (25-40); Mean Corpuscular HGB Conc 33.1 % (30-36); Mean Corpuscular Hemoglobin 35.7 PG (26-34); Monocytes Absolute Auto 1500 /uL (0-900); Monocytes Percent Auto 14.8 % (3-14); Neutrophils Absolute Auto 7100 /uL (1500-7000); Neutrophils Percent Auto 68.3 % (50-75); Platelet Count 134 X10^3/uL (150-400); Red Blood Cell Count 2.22 X10^6/uL (4.5-5.9); Red Cell Distribution Width 20.2 % (11.6-14.8); White Blood Cell Count 10.3 X10^3/uL (4.5-11.0)
--- NOTE | 2021-07-06 22:49 | ED.ABDPAIN ---
HPI - Abdominal Pain <Tony Burgos MD - Last Filed: 07/09/21 07:13> General Chief Complaint: Abdominal Pain Stated Complaint: STAGE 4 RENAL FAILURE STOMACH PAINS SWELLING Time Seen by Provider: 07/06/21 22:34 Source: patient Mode of arrival: Wheelchair Limitations: no limitations History of Present Illness HPI narrative: Patient complains of left lower abdominal pain for the past day. Fever started today. No nausea and vomiting. Patient has been compliant with his home medications for liver failure. [facility]. Is not on liver transplant. 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 No longer drinks alcohol. No altered mental status no confusion. Patient is awake alert oriented x4. No hallucinations. Abdominal distension is not new. Patient and state abdominal distension is baseline for him. It waxes and wanes Related Data Previous Rx's Medication Instructions Recorded cephalexin 500 mg capsule 500 mg PO BID 5 Days #10 cap 07/07/21 Allergies Allergy/AdvReac Type Severity Reaction Status Date / Time No Known Drug Allergies Allergy Verified 12/18/20 05:31 Review of Systems <Tony Burgos MD - Last Filed: 07/09/21 07:13> Review of Systems Narrative: GENERAL: Complaint chills, fatigue, malaise, fever, denies sweats. HEENT: Denies sinus pain, ear pain, sore throat RESPIRATORY: Denies dyspnea, cough CARDIOVASCULAR: Denies chest pain, palpitations GASTROINTESTINAL: Denies nausea, vomiting, complains abdominal pain : Denies dysuria, frequency, hematuria MUSCULOSKELETAL: denies muscle or bony pain SKIN: Denies rash, skin lesions NEUROLOGIC: Denies weakness, numbness ROS Unobtainable: All systems reviewed & are unremarkable except as noted in HPI and below Patient History <Tony Burgos MD - Last Filed: 07/09/21 07:13> Social History Smoking Status: Current every day smoker Smoking Status: Current every day smoker alcohol intake frequency: 0-2 drinks per day Alcohol type: hard liquor Substance Use Type: does not use Exam <Tony Burgos MD - Last Filed: 07/09/21 07:13> Narrative Exam Narrative: GENERAL: in no distress, not toxic not dyspneic HEAD: Normocephalic. EYES: Pupils equal round bilateral scleral icterus. No injection no discharge ENT: Mucous membranes moist. NECK: Trachea midline. CARDIOVASCULAR: Regular rate and rhythm without murmurs RESPIRATORY: Clear to auscultation. Breath sounds equal bilaterally. No wheezes, rales, or rhonchi. GASTROINTESTINAL: Abdomen soft, mild left lower quadrant tenderness no peritoneal signs, has chronic baseline abdominal distension/ascites EXTREMITIES: No gross deformities. BACK: No flank tenderness. NEURO: AOx4. SKIN: Warm and dry PSYCH: Not anxious, is cooperative Initial Vital Signs Initial Vital Signs: Vital Signs Temperature 100.2 F H 07/06/21 22:14 Pulse Rate 117 H 07/06/21 22:14 Respiratory Rate 24 07/06/21 22:14 Blood Pressure 146/66 H 07/06/21 22:14 Pulse Oximetry 98 07/06/21 22:14 <Brant Higginbotham DO - Last Filed: 07/07/21 08:55> Initial Vital Signs Initial Vital Signs: Vital Signs Temperature 100.2 F H 07/06/21 22:14 Pulse Rate 117 H 07/06/21 22:14 Respiratory Rate 24 07/06/21 22:14 Blood Pressure 146/66 H 07/06/21 22:14 Pulse Oximetry 98 07/06/21 22:14 Course <Tony Burgos MD - Last Filed: 07/09/21 07:13> Course Course Narrative: No new issues during course of stay 7:[address] a[address] out to Dr. Higginbotham, awaiting call back from [facility] for placement likely around 9:00 a.m.. Trying for [facility] or [facility] or possibly [facility] Orders Ordered: Discontinued Medications Cephalexin HCl (Cephalexin 250 Mg Capsule) 500 mg PO NOW ONE Stop: 07/07/21 07:59 Last Admin: 07/07/21 08:12 Dose: 500 mg Documented by: BTONER Hydromorphone HCl (Hydromorphone 1 Mg Inj) 1 mg IV NOW ONE Stop: 07/06/21 22:48 Last Admin: 07/06/21 22:59 Dose: 1 mg Documented by: KGALLAG Hydromorphone HCl (Hydromorphone 1 Mg Inj) 1 mg IV NOW ONE Stop: 07/07/21 00:47 Last Admin: 07/07/21 00:55 Dose: 1 mg Documented by: MELITA Hydromorphone HCl (Hydromorphone 0.5 Mg Inj) 0.5 mg IV NOW ONE Stop: 07/07/21 07:59 Last Admin: 07/07/21 08:11 Dose: 0.5 mg Documented by: GALLITO Sodium Chloride (Normal Saline 0.9%) 1,000 mls @ 1,000 mls/hr IV BOLUS ONE Stop: 07/06/21 23:33 Last Infusion: 07/07/21 00:27 Dose: 0 mls/hr Documented by: Admin: 07/06/21 23:00 Dose: 1,000 mls/hr Documented by: MELITA Sodium Chloride (Normal Saline 0.9%) 500 mls @ 1,000 mls/hr IV BOLUS ONE Stop: 07/06/21 23:17 Last Admin: 07/06/21 23:30 Dose: Not Given Documented by: MELITA Ceftriaxone Sodium 1,000 mg/ (Sodium Chloride) 100 mls @ 200 mls/hr IV NOW ONE Stop: 07/07/21 01:47 Last Infusion: 07/07/21 02:35 Dose: 0 mls/hr Documented by: Admin: 07/07/21 01:51 Dose: 200 mls/hr Documented by: MELITA Ibuprofen (Ibuprofen 400 Mg Tablet) 400 mg PO NOW ONE Stop: 07/06/21 22:49 Last Admin: 07/06/21 23:00 Dose: 400 mg Documented by: MELITA Ondansetron HCl (Ondansetron 4 Mg/2 Ml Inj) 4 mg IV NOW ONE Stop: 07/06/21 22:48 Last Admin: 07/06/21 22:59 Dose: 4 mg Documented by: MELITA Reevaluation(s) Reevaluation #1: Reviewed results with patient and . Patient states laboratory studies for liver essentially at baseline. Always has elevated bilirubin. Patient understand bed availability very limited at this time. We are waiting for hospital that has GI capability/services Time: 01:44 Reevaluation #2: Patient has been resting comfortably. No new issues. Awaiting for bed placement Time: 06:53 Vital Signs Vital signs: Vital Signs - 8 hr 07/07/21 01:30 07/07/21 01:34 07/07/21 01:35 Temperature 97.8 F Pulse Rate 102 H 102 H Respiratory Rate 22 19 Blood Pressure 110/56 L Pulse Oximetry 92 94 07/07/21 02:00 07/07/21 02:30 07/07/21 03:00 Temperature Pulse Rate 104 H 104 H 109 H Respiratory Rate 22 19 21 Blood Pressure 123/59 L 115/61 130/63 Pulse Oximetry 92 93 93 07/07/21 03:26 07/07/21 03:30 07/07/21 04:00 Temperature Pulse Rate 108 H 105 H 93 H Respiratory Rate 20 22 14 Blood Pressure 124/89 120/81 121/57 L Pulse Oximetry 99 99 93 07/07/21 04:30 07/07/21 05:00 07/07/21 05:30 Temperature Pulse Rate 89 93 H 92 H Respiratory Rate 12 13 15 Blood Pressure 125/60 105/51 L 104/51 L Pulse Oximetry 93 93 95 07/07/21 06:00 07/07/21 06:30 07/07/21 07:00 Temperature Pulse Rate 91 H 92 H 95 H Respiratory Rate 12 12 16 Blood Pressure 103/51 L 106/55 L 107/53 L Pulse Oximetry 94 92 95 07/07/21 07:30 07/07/21 07:46 07/07/21 08:00 Temperature 98.6 F Pulse Rate 88 93 H Respiratory Rate 12 17 Blood Pressure 93/48 L 111/52 L Pulse Oximetry 95 97 07/07/21 08:30 Temperature Pulse Rate 91 H Respiratory Rate 18 Blood Pressure 120/59 L Pulse Oximetry 94 <Brant Higginbotham, - Last Filed: 07/07/21 08:55> Orders Ordered: Discontinued Medications Cephalexin HCl (Cephalexin 250 Mg Capsule) 500 mg PO NOW ONE Stop: 07/07/21 07:59 Last Admin: 07/07/21 08:12 Dose: 500 mg Documented by: BTONER Hydromorphone HCl (Hydromorphone 1 Mg Inj) 1 mg IV NOW ONE Stop: 07/06/21 22:48 Last Admin: 07/06/21 22:59 Dose: 1 mg Documented by: KGALLAG Hydromorphone HCl (Hydromorphone 1 Mg Inj) 1 mg IV NOW ONE Stop: 07/07/21 00:47 Last Admin: 07/07/21 00:55 Dose: 1 mg Documented by: MELITA Hydromorphone HCl (Hydromorphone 0.5 Mg Inj) 0.5 mg IV NOW ONE Stop: 07/07/21 07:59 Last Admin: 07/07/21 08:11 Dose: 0.5 mg Documented by: GALLITO Sodium Chloride (Normal Saline 0.9%) 1,000 mls @ 1,000 mls/hr IV BOLUS ONE Stop: 07/06/21 23:33 Last Infusion: 07/07/21 00:27 Dose: 0 mls/hr Documented by: Admin: 07/06/21 23:00 Dose: 1,000 mls/hr Documented by: MELITA Sodium Chloride (Normal Saline 0.9%) 500 mls @ 1,000 mls/hr IV BOLUS ONE Stop: 07/06/21 23:17 Last Admin: 07/06/21 23:30 Dose: Not Given Documented by: MELITA Ceftriaxone Sodium 1,000 mg/ (Sodium Chloride) 100 mls @ 200 mls/hr IV NOW ONE Stop: 07/07/21 01:47 Last Infusion: 07/07/21 02:35 Dose: 0 mls/hr Documented by: Admin: 07/07/21 01:51 Dose: 200 mls/hr Documented by: MELITA Ibuprofen (Ibuprofen 400 Mg Tablet) 400 mg PO NOW ONE Stop: 07/06/21 22:49 Last Admin: 07/06/21 23:00 Dose: 400 mg Documented by: MELITA Ondansetron HCl (Ondansetron 4 Mg/2 Ml Inj) 4 mg IV NOW ONE Stop: 07/06/21 22:48 Last Admin: 07/06/21 22:59 Dose: 4 mg Documented by: MELITA Vital Signs Vital signs: Vital Signs - 8 hr 07/07/21 01:30 07/07/21 01:34 07/07/21 01:35 Temperature 97.8 F Pulse Rate 102 H 102 H Respiratory Rate 22 19 Blood Pressure 110/56 L Pulse Oximetry 92 94 07/07/21 02:00 07/07/21 02:30 07/07/21 03:00 Temperature Pulse Rate 104 H 104 H 109 H Respiratory Rate 22 19 21 Blood Pressure 123/59 L 115/61 130/63 Pulse Oximetry 92 93 93 07/07/21 03:26 07/07/21 03:30 07/07/21 04:00 Temperature Pulse Rate 108 H 105 H 93 H Respiratory Rate 20 22 14 Blood Pressure 124/89 120/81 121/57 L Pulse Oximetry 99 99 93 07/07/21 04:30 07/07/21 05:00 07/07/21 05:30 Temperature Pulse Rate 89 93 H 92 H Respiratory Rate 12 13 15 Blood Pressure 125/60 105/51 L 104/51 L Pulse Oximetry 93 93 95 07/07/21 06:00 07/07/21 06:30 07/07/21 07:00 Temperature Pulse Rate 91 H 92 H 95 H Respiratory Rate 12 12 16 Blood Pressure 103/51 L 106/55 L 107/53 L Pulse Oximetry 94 92 95 07/07/21 07:30 07/07/21 07:46 07/07/21 08:00 Temperature 98.6 F Pulse Rate 88 93 H Respiratory Rate 12 17 Blood Pressure 93/48 L 111/52 L Pulse Oximetry 95 97 07/07/21 08:30 Temperature Pulse Rate 91 H Respiratory Rate 18 Blood Pressure 120/59 L Pulse Oximetry 94 MDM - Abdominal Pain <Tony Burgos MD - Last Filed: 07/09/21 07:13> Differential Diagnosis Differential diagnosis: Likely abdominal pain, acute appendicitis, diverticulitis, pancreatitis, small bowel obstruction and other (UTI) Lab Data Result diagrams: 07/06/21 22:33 07/06/21 22:33 Labs: Lab Results 07/06/21 07/06/21 07/06/21 Range/Units 22:33 22:33 22:33 WBC 10.3 (4.5-11.0) X10^3/uL RBC 2.22 L (4.5-5.9) X10^6/uL Hgb 7.9 L (13.5-17.5) g/dL Hct 24.0 L (41-53) % MCV 108.0 H (80-100) fL MCH 35.7 H (26-34) PG MCHC 33.1 (30-36) % RDW 20.2 H (11.6-14.8) % Plt Count 134 L (150-400) X10^3/uL Neut % (Auto) 68.3 (50-75) % Lymph % (Auto) 14.9 L (25-40) % [place] % (Auto) 14.8 H (3-14) % Eos % (Auto) 0.7 L (2-4) % Baso % (Auto) 1.3 (0-2) % Neut # (Auto) 7100 H (2797-5771) /uL Lymph # (Auto) 1500 (3148-9548) /uL [place] # (Auto) 1500 H (0-900) /uL Eos # (Auto) 100 (0-450) /uL Baso # (Auto) 100 (0-100) /uL RBC Morphology See below Polychromasia 2+ H Sodium 132 L (137-145) mmol/L Potassium 3.0 L (3.4-5.1) mmol/L Chloride 102 (98-107) mmol/L Carbon Dioxide 24 (22-32) mmol/L BUN 15 (9-20) mg/dL Creatinine 1.08 (0.66-1.25) mg/dL Estimated GFR > 60.0 (>60) mL/min BUN/Creatinine Ratio 13.9 (6-22) Glucose 104 H (70-100) mg/dL Lactate 2.8 H (0.7-2.1) mmol/L Calcium 7.8 L (8.4-10.2) mg/dL Total Bilirubin 13.4 H (0.2-1.3) mg/dL AST 82 H (17-59) IU/L ALT 34 (<50) IU/L Alkaline Phosphatase 152 H (38-126) U/L Total Protein 6.2 L (6.3-8.2) g/dL Albumin 2.3 L (3.5-5.0) g/dL Globulin 3.9 (1.7-4.1) g/dL Albumin/Globulin Ratio 0.6 L (1.0-2.8) Lipase 360 H (23-300) U/L Procalcitonin 0.18 (<0.5) ng/mL Urine Color Urine Appearance Urine pH (4.5-8.0) Ur Specific [place] (1.000-1.035) Urine Protein (Negative) Urine Glucose (UA) (Negative) g/dL Urine Ketones (NEGATIVE) Urine Occult Blood (Negative) Urine Nitrate (Negative) Urine Bilirubin (NEGATIVE) Ur Bilirubin Confirm (Negative) Urine Urobilinogen (0.2) E.U./dL Ur Leukocyte Esterase (NEGATIVE) Urine RBC (0-5/HPF) Urine WBC (0-5/HPF) Ur Squamous Epith Cells (0-5/HPF) Urine Bacteria (None) Ur Culture Indicated? SARS-CoV-2 (PCR) (Negative) 07/06/21 07/07/21 07/07/21 Range/Units 23:04 01:00 01:03 WBC (4.5-11.0) X10^3/uL RBC (4.5-5.9) X10^6/uL Hgb (13.5-17.5) g/dL Hct (41-53) % MCV (80-100) fL MCH (26-34) PG MCHC (30-36) % RDW (11.6-14.8) % Plt Count (150-400) X10^3/uL Neut % (Auto) (50-75) % Lymph % (Auto) (25-40) % [place] % (Auto) (3-14) % Eos % (Auto) (2-4) % Baso % (Auto) (0-2) % Neut # (Auto) (5807-3455) /uL Lymph # (Auto) (5372-5759) /uL [place] # (Auto) (0-900) /uL Eos # (Auto) (0-450) /uL Baso # (Auto) (0-100) /uL RBC Morphology Polychromasia Sodium (137-145) mmol/L Potassium (3.4-5.1) mmol/L Chloride (98-107) mmol/L Carbon Dioxide (22-32) mmol/L BUN (9-20) mg/dL Creatinine (0.66-1.25) mg/dL Estimated GFR (>60) mL/min BUN/Creatinine Ratio (6-22) Glucose (70-100) mg/dL Lactate 1.6 (0.7-2.1) mmol/L Calcium (8.4-10.2) mg/dL Total Bilirubin (0.2-1.3) mg/dL AST (17-59) IU/L ALT (<50) IU/L Alkaline Phosphatase (38-126) U/L Total Protein (6.3-8.2) g/dL Albumin (3.5-5.0) g/dL Globulin (1.7-4.1) g/dL Albumin/Globulin Ratio (1.0-2.8) Lipase (23-300) U/L Procalcitonin (<0.5) ng/mL Urine Color [place] Urine Appearance Clear Urine pH 6.5 (4.5-8.0) Ur Specific [place] <=1.005 (1.000-1.035) Urine Protein Trace H (Negative) Urine Glucose (UA) Trace H (Negative) g/dL Urine Ketones Negative (NEGATIVE) Urine Occult Blood 2+ H (Negative) Urine Nitrate Positive H (Negative) Urine Bilirubin 3+ H (NEGATIVE) Ur Bilirubin Confirm Positive H (Negative) Urine Urobilinogen 4.0 H (0.2) E.U./dL Ur Leukocyte Esterase Trace H (NEGATIVE) Urine RBC 1-5/hpf (0-5/HPF) Urine WBC 1-5/hpf (0-5/HPF) Ur Squamous Epith Cells 1-5 /hpf (0-5/HPF) Urine Bacteria None seen (None) Ur Culture Indicated? Specimen cultured SARS-CoV-2 (PCR) Negative (Negative) Imaging Data Chest x-ray: Radiologist's Impression: No consolidation CT scan - abdomen/pelvis: Radiologist's Impression: Changes of cirrhosis and portal hypertension with large amount of ascites. Normal appendix. No small bowel obstruction. Bladder nondilated. MDM Narrative Medical decision making narrative: Appropriate for an admission. Patient has high risk of developing sepsis, origin of fever likely urine. <Brant Higginbotham DO - Last Filed: 07/07/21 08:55> Lab Data Labs: Lab Results 07/06/21 07/06/21 07/06/21 Range/Units 22:33 22:33 22:33 WBC 10.3 (4.5-11.0) X10^3/uL RBC 2.22 L (4.5-5.9) X10^6/uL Hgb 7.9 L (13.5-17.5) g/dL Hct 24.0 L (41-53) % MCV 108.0 H (80-100) fL MCH 35.7 H (26-34) PG MCHC 33.1 (30-36) % RDW 20.2 H (11.6-14.8) % Plt Count 134 L (150-400) X10^3/uL Neut % (Auto) 68.3 (50-75) % Lymph % (Auto) 14.9 L (25-40) % [place] % (Auto) 14.8 H (3-14) % Eos % (Auto) 0.7 L (2-4) % Baso % (Auto) 1.3 (0-2) % Neut # (Auto) 7100 H (3157-6742) /uL Lymph # (Auto) 1500 (9727-5463) /uL [place] # (Auto) 1500 H (0-900) /uL Eos # (Auto) 100 (0-450) /uL Baso # (Auto) 100 (0-100) /uL RBC Morphology See below Polychromasia 2+ H Sodium 132 L (137-145) mmol/L Potassium 3.0 L (3.4-5.1) mmol/L Chloride 102 (98-107) mmol/L Carbon Dioxide 24 (22-32) mmol/L BUN 15 (9-20) mg/dL Creatinine 1.08 (0.66-1.25) mg/dL Estimated GFR > 60.0 (>60) mL/min BUN/Creatinine Ratio 13.9 (6-22) Glucose 104 H (70-100) mg/dL Lactate 2.8 H (0.7-2.1) mmol/L Calcium 7.8 L (8.4-10.2) mg/dL Total Bilirubin 13.4 H (0.2-1.3) mg/dL AST 82 H (17-59) IU/L ALT 34 (<50) IU/L Alkaline Phosphatase 152 H (38-126) U/L Total Protein 6.2 L (6.3-8.2) g/dL Albumin 2.3 L (3.5-5.0) g/dL Globulin 3.9 (1.7-4.1) g/dL Albumin/Globulin Ratio 0.6 L (1.0-2.8) Lipase 360 H (23-300) U/L Procalcitonin 0.18 (<0.5) ng/mL Urine Color Urine Appearance Urine pH (4.5-8.0) Ur Specific [place] (1.000-1.035) Urine Protein (Negative) Urine Glucose (UA) (Negative) g/dL Urine Ketones (NEGATIVE) Urine Occult Blood (Negative) Urine Nitrate (Negative) Urine Bilirubin (NEGATIVE) Ur Bilirubin Confirm (Negative) Urine Urobilinogen (0.2) E.U./dL Ur Leukocyte Esterase (NEGATIVE) Urine RBC (0-5/HPF) Urine WBC (0-5/HPF) Ur Squamous Epith Cells (0-5/HPF) Urine Bacteria (None) Ur Culture Indicated? SARS-CoV-2 (PCR) (Negative) 07/06/21 07/07/21 07/07/21 Range/Units 23:04 01:00 01:03 WBC (4.5-11.0) X10^3/uL RBC (4.5-5.9) X10^6/uL Hgb (13.5-17.5) g/dL Hct (41-53) % MCV (80-100) fL MCH (26-34) PG MCHC (30-36) % RDW (11.6-14.8) % Plt Count (150-400) X10^3/uL Neut % (Auto) (50-75) % Lymph % (Auto) (25-40) % [place] % (Auto) (3-14) % Eos % (Auto) (2-4) % Baso % (Auto) (0-2) % Neut # (Auto) (2463-4446) /uL Lymph # (Auto) (5223-2162) /uL [place] # (Auto) (0-900) /uL Eos # (Auto) (0-450) /uL Baso # (Auto) (0-100) /uL RBC Morphology Polychromasia Sodium (137-145) mmol/L Potassium (3.4-5.1) mmol/L Chloride (98-107) mmol/L Carbon Dioxide (22-32) mmol/L BUN (9-20) mg/dL Creatinine (0.66-1.25) mg/dL Estimated GFR (>60) mL/min BUN/Creatinine Ratio (6-22) Glucose (70-100) mg/dL Lactate 1.6 (0.7-2.1) mmol/L Calcium (8.4-10.2) mg/dL Total Bilirubin (0.2-1.3) mg/dL AST (17-59) IU/L ALT (<50) IU/L Alkaline Phosphatase (38-126) U/L Total Protein (6.3-8.2) g/dL Albumin (3.5-5.0) g/dL Globulin (1.7-4.1) g/dL Albumin/Globulin Ratio (1.0-2.8) Lipase (23-300) U/L Procalcitonin (<0.5) ng/mL Urine Color [place] Urine Appearance Clear Urine pH 6.5 (4.5-8.0) Ur Specific [place] <=1.005 (1.000-1.035) Urine Protein Trace H (Negative) Urine Glucose (UA) Trace H (Negative) g/dL Urine Ketones Negative (NEGATIVE) Urine Occult Blood 2+ H (Negative) Urine Nitrate Positive H (Negative) Urine Bilirubin 3+ H (NEGATIVE) Ur Bilirubin Confirm Positive H (Negative) Urine Urobilinogen 4.0 H (0.2) E.U./dL Ur Leukocyte Esterase Trace H (NEGATIVE) Urine RBC 1-5/hpf (0-5/HPF) Urine WBC 1-5/hpf (0-5/HPF) Ur Squamous Epith Cells 1-5 /hpf (0-5/HPF) Urine Bacteria None seen (None) Ur Culture Indicated? Specimen cultured SARS-CoV-2 (PCR) Negative (Negative) MDM Narrative Medical decision making narrative: Appropriate for an admission. Patient has high risk of developing sepsis, origin of fever likely urine. Dr higginbotham: Received turned over from Dr. Burgos. Reviewed patient's history and physical exam. I performed my own independent exam. Patient does have urinary tract infection. Has had a CT scan which shows no acute pathology and no signs of pyelonephritis. He was febrile upon arrival but this has improved. He is not hypotensive. Not tachycardic. His lactate unremarkable. Does not have leukocytosis. His liver enzymes are at baseline. Came in today for evaluation of his abdominal pain. This did improve with medications here in the ER. Other than the urinary tract infection no other identifiable source for the abdominal pain has been seen although it appears that he has had this for some time now. The urinary tract infection may be an incidental finding. The initial plan from the night provider was to admit the patient because of the potential for worsening/sepsis. There is no indication of any sepsis currently. There are is no bed availability in [facility]. Contact in multiple places. We have also contacted the [facility] coordination [facility]. I had a long discussion with the patient and his . We discussed potentially being transferred to a facility that is further away or being discharged home with oral antibiotics and returning if his symptoms worsen. The patient opted to be discharged home. He was given a dose of antibiotics and was able to the tolerate this oral intake. We will send home with oral antibiotics. He was given strict return precautions. He expressed understanding and agreement this plan. Discharge Plan Departure Patient Disposition: Home Clinical Impression: Acute UTI, Abdominal pain, Cirrhosis Instructions: DI for Urinary Tract Infection (UTI), DI for Abdominal Pain-Adult Activity Restrictions/Additional Instructions: Recommend that you contact your primary doctor for a follow-up. I do recommend that you avoid Tylenol/acetaminophen because of your liver issues. Take the antibiotics as directed. Return to the emergency department for any new or worsening symptoms Prescriptions: New cephalexin 500 mg capsule 500 mg PO BID 5 Days Qty: 10 RF: 0
[2021-07-06 22:55] LABS: Add Manual Diff / Slide Review SLIDE REVIEW
[2021-07-06 22:59] LABS: Lactate (Lactic Acid) 2.8 mmol/L (0.7-2.1)
[2021-07-06] MEDS: HYDROMORPHONE 1 MG INJ IV (22:59)
[2021-07-06] MEDS: ONDANSETRON 4 MG/2 ML INJ IV (22:59)
[2021-07-06 23:00] VITALS: BP 122/61; PULSE 114; RESP 17; O2SAT 97
[2021-07-06 23:00] LABS: Alanine Aminotransferase 34 IU/L (<50); Albumin 2.3 g/dL (3.5-5.0); Albumin Globulin Ratio 0.6 (1.0-2.8); Alkaline Phosphatase 152 U/L (38-126); Aspartate Aminotransferase 82 IU/L (17-59); BUN Creatinine Ratio 13.9 (6-22); Bilirubin Total 13.4 mg/dL (0.2-1.3); Blood Urea Nitrogen 15 mg/dL (9-20); Calcium 7.8 mg/dL (8.4-10.2); Carbon Dioxide 24 mmol/L (22-32); Chloride 102 mmol/L (98-107); Estimated Glomerular Filt Rate > 60.0 mL/min (>60); Globulin 3.9 g/dL (1.7-4.1); Glucose 104 mg/dL (70-100); HEMOLYSIS < 15 (0-50); Lipase 360 U/L (23-300); Sodium 132 mmol/L (137-145); Total Protein 6.2 g/dL (6.3-8.2)
[2021-07-06] MEDS: IBUPROFEN 400 MG TABLET PO (23:00)
[2021-07-06] MEDS: SODIUM CHLORIDE 0.9% 1,000 ML 1000 ML IV (23:00)
[2021-07-06 23:16] LABS: Procalcitonin 0.18 ng/mL (<0.5)
[2021-07-06 23:27] LABS: Polychromasia 2+
[2021-07-06 23:33] VITALS: PULSE 109; O2SAT 98
[2021-07-07] VITALS (22 sets, daily range): BP systolic 93–130; BP diastolic 48–89; PULSE 88–109; RESP 12–22; TEMP 36.6–37; O2SAT 92–99
[2021-07-07 00:07] LABS: COVID19 - ADMIT (NP swab/PCR) Negative (Negative)
[2021-07-07 00:40] LABS: Reflexed Lactate in 2 Hours Y
[2021-07-07] MEDS: HYDROMORPHONE 1 MG INJ IV (00:55)
[2021-07-07 01:15] LABS: Bacteria Urine None Seen
[2021-07-07 01:25] LABS: Lactate 2HR (Lactic Acid Rflx) 1.6 mmol/L (0.7-2.1)
[2021-07-07 01:30] LABS: Appearance Urine UA CLEAR; Bilirubin Urine UA 3+ (NEGATIVE); Color Urine UA ORANGE; Glucose Urine UA TRACE g/dL (Negative); Ketones Urine UA NEGATIVE (NEGATIVE); Leukocyte Esterase Urine UA TRACE (NEGATIVE); Nitrite Urine UA POSITIVE (Negative); Occult Blood Urine UA 2+ (Negative); Protein Urine UA TRACE (Negative); Specific Gravity Urine UA <=1.005 (1.000-1.035); pH Urine UA 6.5 (4.5-8.0)
[2021-07-07 01:32] LABS: Ictotest Urine Positive (Negative)
[2021-07-07 01:33] LABS: Culture Indicated Urine Specimen Cultured; RBC Urine 1-5/HPF (0-5/HPF); Squamous Epithelial Cell Urine 1-5 /HPF (0-5/HPF); WBC Urine 1-5/HPF (0-5/HPF)
[2021-07-07] MEDS: cefTRIAXone 1,000 MG in SODIUM CHLORIDE 0.9% 100 ML 200 ML IV (01:51)
[2021-07-07] MEDS: HYDROMORPHONE 0.5 MG INJ IV (08:11)
[2021-07-07] MEDS: cephALEXin 250 MG CAPSULE 500 MG PO (08:12)
== END 2021-07-07 10:12 | disposition home or self-care (01) ==
PROVIDERS: Emergency Medicine; Emergency Provider Emergency Medicine
DX: N39.0 Urinary tract infection, site not specified (principal); R10.32 Left lower quadrant pain; K74.60 Unspecified cirrhosis of liver; Z20.822 Contact with and (suspected) exposure to COVID-19
CPT/HCPCS: 36415; 71045; 74177; 80053; 81001; 83605; 83690; 84145; 85025; 87040; 87086; 87635; 96361; 96365; 96375; 96376; 99285; C9803; J0696; J1170; J2405; Q9967